=== PATIENT | male | born 1945 | race African-American/Black ===

== ENCOUNTER 2021-06-07 17:04 | Inpatient (IN) ==
[2021-06-08 01:17] LABS: Osmolality,Calculated 289.2 MOS/KG (273-304); Potassium 5.4 MMOL/L (3.5-5.1)
[2021-06-08 01:20] LABS: Basophils % 0.2 % (0.0-0.8); Hematocrit 46.7 VOL% (42.0-52.0); Hemoglobin 15.3 GM/DL (14.0-18.0); Immature Granulocytes Absolute 0.24 #; Lymphocytes # 0.6 10*3/uL (1.4-4.0); Lymphocytes % 4.7 % (21.2-54.2); Mean Corpuscular HGB Conc 32.8 GM/DL (32-36); Mean Corpuscular Volume 89.1 FL (87-102); Mean Platelet Volume 9.9 FL (9.6-12.0); Monocytes % 6.2 % (1.7-12.7); Neutrophils % 86.9 % (38.7-73.9); Platelet Count 208 T/CUMM (130-400); Red Blood Count 5.24 MC/CUMM (3.8-5.5); Red Cell Distribution Width 15.6 % (9.3-17.3)
[2021-06-08] MEDS ORDERED: SODIUM CHLORIDE 0.9% 1,000 ML IV STA (01:28)
[2021-06-08] MEDS ORDERED: ONDANSETRON 4 MG/2 ML VIAL IV PRN (01:37)
[2021-06-08] MEDS ORDERED: GLUCAGON 1 MG VIAL IM PRN (01:37)
[2021-06-08] MEDS ORDERED: DEXTROSE 50% 25 GM/50 ML SYRINGE IV PRN (01:37)
[2021-06-08] MEDS ORDERED: ACETAMINOPHEN 325 MG TABLET PO PRN (01:37)
[2021-06-08 03:16] LABS: Band Neutrophils 2 % (0-10); Lymphocytes 5 % (20-55); Platelet Estimate Normal; Segmented Neutrophils 90 % (50-85); Total Cells Counted 100
[2021-06-08 03:17] LABS: Microcytosis Slight; Polychromasia Slight
[2021-06-08 03:33] LABS: Basophils % 0.3 % (0.0-0.8); Eosinophils % 0.2 % (0.00-10.9); Hematocrit 44.5 VOL% (42.0-52.0); Hemoglobin 14.8 GM/DL (14.0-18.0); Immature Granulocytes % 1.3 %; Immature Granulocytes Absolute 0.15 #; Lymphocytes # 0.4 10*3/uL (1.4-4.0); Lymphocytes % 3.4 % (21.2-54.2); Mean Corpuscular HGB Conc 33.3 GM/DL (32-36); Mean Corpuscular Volume 88.6 FL (87-102); Mean Platelet Volume 10.4 FL (9.6-12.0); Monocytes % 3.5 % (1.7-12.7); Neutrophils % 91.3 % (38.7-73.9); Platelet Count 214 T/CUMM (130-400); Red Blood Count 5.02 MC/CUMM (3.8-5.5); Red Cell Distribution Width 15.6 % (9.3-17.3); White Blood Count 11.9 T/CUMM (4-12)
[2021-06-08 04:03] LABS: Band Neutrophils 3 % (0-10); Lymphocytes 1 % (20-55); Platelet Estimate Adequate; Segmented Neutrophils 92 % (50-85); Total Cells Counted 100
[2021-06-08 04:12] LABS: Calcium 8.8 MG/DL (8.5-10.1); Osmolality,Calculated 293.1 MOS/KG (273-304); Potassium 5.7 MMOL/L (3.5-5.1); Thyroid Stimulating Hormone 1.36 uIU/ml (0.358-3.74)
[2021-06-08] MEDS: cefTRIAXone 2,000 MG in SODIUM CHLORIDE 0.9% 100 ML IV SCH (04:27)
[2021-06-08 04:38] LABS: Ferritin 1362.1 ng/mL (26-388)
[2021-06-08] MEDS: SODIUM CHLORIDE 0.9% 1,000 ML IV SCH ×3 (04:45→21:54)
[2021-06-08] MEDS: HEPARIN 5,000 UNIT/1 ML VIAL SUBCUT SCH ×2 (09:39→21:54)
[2021-06-08] MEDS: amLODIPine 10 MG TABLET PO SCH (09:46)
[2021-06-08] MEDS: ZINC SULFATE 220 MG CAPSULE PO SCH (09:46)
[2021-06-08] MEDS: PANTOPRAZOLE 40 MG TABLET PO SCH (09:46)
[2021-06-08] MEDS: DEXAMETHASONE 4 MG TABLET PO SCH (09:46)
[2021-06-08] MEDS: FAMOTIDINE 20 MG TABLET PO SCH (09:46)
[2021-06-09] MEDS: SODIUM CHLORIDE 0.9% 1,000 ML IV SCH ×2 (05:08→05:09)
[2021-06-09 05:29] LABS: Basophils % 0.1 % (0.0-0.8); Lymphocytes # 0.5 10*3/uL (1.4-4.0); Lymphocytes % 2.8 % (21.2-54.2); Mean Corpuscular Volume 88.5 FL (87-102); Red Cell Distribution Width 15.7 % (9.3-17.3)
[2021-06-09 05:43] LABS: Hematocrit 36.9 VOL% (42.0-52.0); Immature Granulocytes % 0.7 %; Immature Granulocytes Absolute 0.11 #; Mean Corpuscular HGB Conc 33.6 GM/DL (32-36); Monocytes % 2.1 % (1.7-12.7); Neutrophils % 94.3 % (38.7-73.9); Platelet Count 201 T/CUMM (130-400); Red Blood Count 4.17 MC/CUMM (3.8-5.5)
[2021-06-09 05:47] LABS: Hemoglobin 12.4 GM/DL (14.0-18.0); White Blood Count 15.9 T/CUMM (4-12)
[2021-06-09 05:48] LABS: Calcium 8.2 MG/DL (8.5-10.1); Osmolality,Calculated 305.5 MOS/KG (273-304); Potassium 5.2 MMOL/L (3.5-5.1)
[2021-06-09 05:51] LABS: Band Neutrophils 2 % (0-10); Lymphocytes 1 % (20-55); Platelet Estimate Adequate; Segmented Neutrophils 95 % (50-85); Total Cells Counted 100
[2021-06-09] MEDS: cefTRIAXone 2,000 MG in SODIUM CHLORIDE 0.9% 100 ML IV SCH (06:22)
[2021-06-09] MEDS ORDERED: SODIUM BICARBONATE 650 MG TABLET PO SCH (09:00)
[2021-06-09] MEDS: HEPARIN 5,000 UNIT/1 ML VIAL SUBCUT SCH ×2 (09:56→22:01)
[2021-06-09] MEDS: FAMOTIDINE 20 MG TABLET PO SCH (09:56)
[2021-06-09] MEDS: DEXAMETHASONE 4 MG TABLET PO SCH (09:56)
[2021-06-09] MEDS: PANTOPRAZOLE 40 MG TABLET PO SCH (09:56)
[2021-06-09] MEDS: amLODIPine 10 MG TABLET PO SCH (09:56)
[2021-06-09] MEDS: ZINC SULFATE 220 MG CAPSULE PO SCH (09:56)
[2021-06-09] MEDS ORDERED: AZITHROMYCIN 250 MG TABLET PO ONE (12:18)
[2021-06-09] MEDS: SODIUM BICARB INJ 100 MEQ in DEXTROSE 5% 1,000 ML IV SCH ×2 (12:20→22:01)
[2021-06-09] MEDS: SODIUM ZIRCONIUM CYCLOSILICATE 10 GM PACK PO SCH (12:20)
[2021-06-09 17:54] LABS: Bilirubin,Urine Negative (Negative); Blood, Urine Moderate mg/dL (Negative); Glucose,Urine (UA) Negative (Negative); Ketones,Urine Negative (Negative); Mucus,Urine Occasional /LPF (Occasional); Nitrite,Urine Negative (Negative); Protein,Urine >=500 MG/DL; RBC,Urine 7 /HPF (0-4); Urine Appearance Slightly Hazy (Clear); Urine Color Yellow (Yellow); Urine Specific Gravity 1.011 (1.001-1.035); Urine Urobilinogen < 2.0 EU/DL (<2.0)
[2021-06-10] MEDS: SODIUM BICARB INJ 100 MEQ in DEXTROSE 5% 1,000 ML IV SCH ×2 (04:36→12:43)
[2021-06-10 05:42] LABS: Basophils % 0.1 % (0.0-0.8); Hematocrit 33.2 VOL% (42.0-52.0); Hemoglobin 11.5 GM/DL (14.0-18.0); Immature Granulocytes % 0.9 %; Immature Granulocytes Absolute 0.13 #; Lymphocytes # 0.3 10*3/uL (1.4-4.0); Lymphocytes % 1.9 % (21.2-54.2); Mean Corpuscular HGB Conc 34.6 GM/DL (32-36); Mean Corpuscular Volume 87.1 FL (87-102); Mean Platelet Volume 9.9 FL (9.6-12.0); Neutrophils % 96.1 % (38.7-73.9); Platelet Count 197 T/CUMM (130-400); Red Blood Count 3.81 MC/CUMM (3.8-5.5); Red Cell Distribution Width 15.5 % (9.3-17.3)
[2021-06-10 06:05] LABS: Calcium 7.5 MG/DL (8.5-10.1); Osmolality,Calculated 300.1 MOS/KG (273-304); Potassium 4.3 MMOL/L (3.5-5.1)
[2021-06-10] MEDS: cefTRIAXone 2,000 MG in SODIUM CHLORIDE 0.9% 100 ML IV SCH (06:09)
[2021-06-10 06:12] LABS: Band Neutrophils 5 % (0-10); Hypochromia Slight; Lymphocytes 2 % (20-55); Segmented Neutrophils 93 % (50-85); Total Cells Counted 100
[2021-06-10 06:13] LABS: Microcytosis 1+; Tear Drop Cells Slight
[2021-06-10 06:14] LABS: Platelet Estimate Adequate; Schistocytes Slight
[2021-06-10] MEDS: AZITHROMYCIN 250 MG TABLET PO SCH (09:46)
[2021-06-10] MEDS: ZINC SULFATE 220 MG CAPSULE PO SCH (09:46)
[2021-06-10] MEDS: HEPARIN 5,000 UNIT/1 ML VIAL SUBCUT SCH ×2 (09:46→20:08)
[2021-06-10] MEDS: SODIUM ZIRCONIUM CYCLOSILICATE 10 GM PACK PO SCH (09:46)
[2021-06-10] MEDS: DEXAMETHASONE 4 MG TABLET PO SCH (09:46)
[2021-06-10] MEDS: NICOTINE 21 MG/24 HR PATCH TRANSDERM SCH (09:46)
[2021-06-10] MEDS: PANTOPRAZOLE 40 MG TABLET PO SCH (09:46)
[2021-06-10] MEDS: FAMOTIDINE 20 MG TABLET PO SCH (09:46)
[2021-06-10] MEDS: amLODIPine 10 MG TABLET PO SCH (09:47)
[2021-06-11 05:26] LABS: Hematocrit 31.4 VOL% (42.0-52.0); Hemoglobin 11.1 GM/DL (14.0-18.0); Immature Granulocytes % 0.8 %; Immature Granulocytes Absolute 0.07 #; Lymphocytes # 0.2 10*3/uL (1.4-4.0); Lymphocytes % 2.3 % (21.2-54.2); Mean Corpuscular HGB Conc 35.4 GM/DL (32-36); Mean Corpuscular Volume 88.7 FL (87-102); Mean Platelet Volume 10.8 FL (9.6-12.0); Monocytes % 1.8 % (1.7-12.7); Neutrophils % 95.1 % (38.7-73.9); Platelet Count 223 T/CUMM (130-400); Red Blood Count 3.54 MC/CUMM (3.8-5.5); White Blood Count 9.1 T/CUMM (4-12)
[2021-06-11] MEDS: SODIUM BICARB INJ 100 MEQ in DEXTROSE 5% 1,000 ML IV SCH ×2 (05:38)
[2021-06-11] MEDS: cefTRIAXone 2,000 MG in SODIUM CHLORIDE 0.9% 100 ML IV SCH (05:39)
[2021-06-11 05:46] LABS: Alanine Aminotransferase 30 U/L (16-61); Albumin 1.4 G/DL (3.4-5.0); Alkaline Phosphatase 52 U/L (45-117); Aspartate Amino Transferase 67 U/L (0-37); Bilirubin,Total < 0.39 MG/DL (0.20-1.00); Blood Urea Nitrogen 128 MG/DL (7-18); Calcium 7.1 MG/DL (8.5-10.1); Carbon Dioxide 23 MMOL/L (21-32); Estimated Glom Filtration Rate 9 ML/MIN; Ferritin 1407.2 ng/mL (26-388); Glucose 189 MG/DL (74-106); Osmolality,Calculated 296.5 MOS/KG (273-304); Potassium 3.9 MMOL/L (3.5-5.1); Sodium 125 MMOL/L (136-145); Total Protein 5.9 G/DL (6.4-8.2)
[2021-06-11 05:53] LABS: Hypochromia Slight; Lymphocytes 2 % (20-55); Microcytosis 1+; Segmented Neutrophils 97 % (50-85); Total Cells Counted 100
[2021-06-11 05:54] LABS: Platelet Estimate Normal
[2021-06-11] MEDS: FAMOTIDINE 20 MG TABLET PO SCH (09:26)
[2021-06-11] MEDS: amLODIPine 10 MG TABLET PO SCH (09:26)
[2021-06-11] MEDS: HEPARIN 5,000 UNIT/1 ML VIAL SUBCUT SCH ×2 (09:26→21:14)
[2021-06-11] MEDS: NICOTINE 21 MG/24 HR PATCH TRANSDERM SCH (09:26)
[2021-06-11] MEDS: AZITHROMYCIN 250 MG TABLET PO SCH (09:26)
[2021-06-11] MEDS: PANTOPRAZOLE 40 MG TABLET PO SCH (09:26)
[2021-06-11] MEDS: DEXAMETHASONE 4 MG TABLET PO SCH (09:26)
[2021-06-11] MEDS: SODIUM ZIRCONIUM CYCLOSILICATE 10 GM PACK PO SCH (09:27)
[2021-06-11] MEDS: ZINC SULFATE 220 MG CAPSULE PO SCH (09:33)
[2021-06-11] MEDS: SODIUM CHLORIDE 0.9% 1,000 ML IV SCH (13:34)
[2021-06-12] MEDS: SODIUM CHLORIDE 0.9% 1,000 ML IV SCH (02:55)
[2021-06-12] MEDS: cefTRIAXone 2,000 MG in SODIUM CHLORIDE 0.9% 100 ML IV SCH (05:25)
[2021-06-12 05:44] LABS: Basophils % 0.2 % (0.0-0.8); Hematocrit 34.1 VOL% (42.0-52.0); Hemoglobin 12.1 GM/DL (14.0-18.0); Immature Granulocytes % 0.6 %; Immature Granulocytes Absolute 0.04 #; Lymphocytes # 0.3 10*3/uL (1.4-4.0); Lymphocytes % 4.7 % (21.2-54.2); Mean Corpuscular HGB Conc 35.5 GM/DL (32-36); Mean Corpuscular Volume 88.1 FL (87-102); Mean Platelet Volume 10.2 FL (9.6-12.0); Monocytes % 3.4 % (1.7-12.7); Neutrophils % 91.1 % (38.7-73.9); Platelet Count 254 T/CUMM (130-400); Red Blood Count 3.87 MC/CUMM (3.8-5.5); Red Cell Distribution Width 14.8 % (9.3-17.3); White Blood Count 6.5 T/CUMM (4-12)
[2021-06-12 06:11] LABS: Lymphocytes 5 % (20-55); Platelet Estimate Adequate; Segmented Neutrophils 94 % (50-85); Total Cells Counted 100
[2021-06-12 06:12] LABS: Hypochromia Slight; Microcytosis 1+
[2021-06-12 06:15] LABS: Ferritin 1390.9 ng/mL (26-388); Osmolality,Calculated 309.4 MOS/KG (273-304); Potassium 3.9 MMOL/L (3.5-5.1)
[2021-06-12 08:35] VITALS: BP 139/82
[2021-06-12] MEDS: DEXAMETHASONE 4 MG TABLET PO SCH (10:31)
[2021-06-12] MEDS: NICOTINE 21 MG/24 HR PATCH TRANSDERM SCH (10:32)
[2021-06-12] MEDS: SODIUM ZIRCONIUM CYCLOSILICATE 10 GM PACK PO SCH (10:32)
[2021-06-12] MEDS: HEPARIN 5,000 UNIT/1 ML VIAL SUBCUT SCH (10:32)
[2021-06-12] MEDS: ZINC SULFATE 220 MG CAPSULE PO SCH (10:33)
[2021-06-12] MEDS: AZITHROMYCIN 250 MG TABLET PO SCH (10:33)
[2021-06-12] MEDS: PANTOPRAZOLE 40 MG TABLET PO SCH (10:33)
[2021-06-12] MEDS: amLODIPine 10 MG TABLET PO SCH (10:33)
[2021-06-12] MEDS: FAMOTIDINE 20 MG TABLET PO SCH (10:33)
== END 2021-06-12 10:30 | disposition left against medical advice (07) | DRG 177 ==
LOC: N.ED 17:04 → N.EDINP 06-08 01:37 → SUATTDRO 06-08 01:37 → N.3E 06-08 02:35
PROVIDERS: ADMIT Internal Medicine; ATTEND Internal Medicine

== ENCOUNTER 2022-05-21 10:11 | Inpatient (IN) ==
[2022-05-21] MEDS ORDERED: hydrALAZINE 20 MG/1 ML VIAL IV STA (10:43)
[2022-05-21 10:53] LABS: Basophils % 0.2 % (0.0-0.8); Eosinophils % 0.5 % (0.00-10.9); Hematocrit 40.2 VOL% (42.0-52.0); Hemoglobin 12.9 GM/DL (14.0-18.0); Immature Granulocytes % 0.3 %; Immature Granulocytes Absolute 0.02 #; Lymphocytes # 0.9 10*3/uL (1.4-4.0); Lymphocytes % 15.4 % (21.2-54.2); Mean Corpuscular HGB Conc 32.1 GM/DL (32-36); Mean Corpuscular Volume 92.6 FL (87-102); Mean Platelet Volume 9.1 FL (9.6-12.0); Monocytes # 0.3 10*3/uL (0.11-0.8); Monocytes % 5.6 % (1.7-12.7); Platelet Count 171 T/CUMM (130-400); Red Blood Count 4.34 MC/CUMM (3.8-5.5); Red Cell Distribution Width 14.9 % (9.3-17.3); White Blood Count 6.1 T/CUMM (4-12)
[2022-05-21 11:15] LABS: Alanine Aminotransferase 24 U/L (16-61); Albumin 3.6 G/DL (3.4-5.0); Alkaline Phosphatase 79 U/L (45-117); Aspartate Amino Transferase 32 U/L (0-37); Bilirubin,Total < 0.39 MG/DL (0.20-1.00); Blood Urea Nitrogen 45 MG/DL (7-18); Calcium 9.3 MG/DL (8.5-10.1); Carbon Dioxide 19 MMOL/L (21-32); Chloride 109 MMOL/L (98-107); Glucose 115 MG/DL (74-106); Osmolality,Calculated 287.7 MOS/KG (273-304); Potassium 4.7 MMOL/L (3.5-5.1); Sodium 138 MMOL/L (136-145); Total Protein 8.2 G/DL (6.4-8.2)
[2022-05-21 11:44] LABS: Barbiturates Screen,Urine Negative (Negative); Benzodiazepines Screen,Urine Negative (Negative); Cannabinoid Screen,Urine Negative (Negative); Mucus,Urine Occasional /LPF (Occasional); Opiate Screen,Urine Negative (Negative); Phencyclidine Screen,Urine Negative (Negative); Squamous Epithelial Cell,Urine Occasional /HPF (0-10)
[2022-05-21 11:45] LABS: Bilirubin,Urine Negative (Negative); Blood, Urine Small mg/dL (Negative); Glucose,Urine (UA) Negative (Negative); Ketones,Urine Negative (Negative); Nitrite,Urine Negative (Negative); Protein,Urine >=300 mg/dL (Negative); Urine Appearance Clear (Clear); Urine Color Yellow (Yellow); Urine Specific Gravity > 1.030 (1.001-1.035); Urine Urobilinogen 0.2 eU/dL (<2.0); Urine pH 5.5 (4.5-8.0)
[2022-05-21] MEDS ORDERED: LABETALOL 100 MG/20 ML VIAL IV STA (13:19)
[2022-05-21] MEDS ORDERED: ONDANSETRON 4 MG/2 ML VIAL IV PRN (13:42)
[2022-05-21] MEDS ORDERED: ALBUTEROL/IPRATROPIUM 3 ML NEB RESP TX PRN (13:42)
[2022-05-21] MEDS ORDERED: guaiFENesin/DM ER 600-30 MG TABLET PO PRN (13:42)
[2022-05-21] MEDS ORDERED: NICOTINE 21 MG/24 HR PATCH TRANSDERM PRN (13:42)
[2022-05-21] MEDS ORDERED: ACETAMINOPHEN 325 MG TABLET PO PRN (13:42)
[2022-05-21] MEDS ORDERED: cefTRIAXone 1,000 MG in SODIUM CHLORIDE 0.9% 100 ML IV SCH (14:00)
[2022-05-21] MEDS: SODIUM CHLORIDE 0.9% 1,000 ML IV SCH ×2 (14:19→22:42)
[2022-05-21] MEDS ORDERED: ENOXAPARIN 30 MG/0.3 ML SYRINGE SUBCUT SCH (21:00)
[2022-05-22 06:38] LABS: Basophils % 0.2 % (0.0-0.8); Eosinophils # 0.1 10*3/uL (0.0-0.87); Eosinophils % 1.4 % (0.00-10.9); Hemoglobin 11.2 GM/DL (14.0-18.0); Immature Granulocytes % 0.4 %; Immature Granulocytes Absolute 0.02 #; Lymphocytes # 0.8 10*3/uL (1.4-4.0); Mean Corpuscular HGB Conc 31.1 GM/DL (32-36); Mean Platelet Volume 10.1 FL (9.6-12.0); Monocytes # 0.4 10*3/uL (0.11-0.8); Monocytes % 7.4 % (1.7-12.7); Neutrophils % 76.6 % (38.7-73.9); Platelet Count 169 T/CUMM (130-400); Red Blood Count 3.79 MC/CUMM (3.8-5.5); Red Cell Distribution Width 15.4 % (9.3-17.3); White Blood Count 5.6 T/CUMM (4-12)
[2022-05-22 06:54] LABS: Calcium 8.8 MG/DL (8.5-10.1); Osmolality,Calculated 292.3 MOS/KG (273-304); Potassium 4.9 MMOL/L (3.5-5.1)
[2022-05-22] MEDS: SODIUM CHLORIDE 0.9% 1,000 ML IV SCH (06:58)
[2022-05-22] MEDS ORDERED: amLODIPine 5 MG TABLET PO SCH (09:00)
[2022-05-22 15:54] VITALS: BP 112/70
== END 2022-05-22 11:10 | disposition left against medical advice (07) | DRG 305 ==
LOC: N.ED 10:11 → N.3E 13:42 → SUATTDRO 13:42 → N.3E 15:05
PROVIDERS: ADMIT Internal Medicine; ATTEND Internal Medicine

== ENCOUNTER 2022-05-27 18:07 | Inpatient (IN) ==
[2022-05-27 19:12] LABS: Basophils % 0.2 % (0.0-0.8); Eosinophils # 0.1 10*3/uL (0.0-0.87); Eosinophils % 1.2 % (0.00-10.9); Hematocrit 36.3 VOL% (42.0-52.0); Hemoglobin 11.7 GM/DL (14.0-18.0); Immature Granulocytes % 0.2 %; Immature Granulocytes Absolute 0.01 #; Lymphocytes # 0.9 10*3/uL (1.4-4.0); Lymphocytes % 17.5 % (21.2-54.2); Mean Corpuscular HGB Conc 32.2 GM/DL (32-36); Mean Corpuscular Volume 92.1 FL (87-102); Mean Platelet Volume 9.5 FL (9.6-12.0); Monocytes # 0.4 10*3/uL (0.11-0.8); Monocytes % 7.4 % (1.7-12.7); Neutrophils % 73.5 % (38.7-73.9); Platelet Count 191 T/CUMM (130-400); Red Blood Count 3.94 MC/CUMM (3.8-5.5); White Blood Count 4.9 T/CUMM (4-12)
[2022-05-27 19:31] LABS: Alanine Aminotransferase 28 U/L (16-61); Albumin 3.1 G/DL (3.4-5.0); Alkaline Phosphatase 71 U/L (45-117); Aspartate Amino Transferase 45 U/L (0-37); Bilirubin,Total < 0.39 MG/DL (0.20-1.00); Blood Urea Nitrogen 49 MG/DL (7-18); Calcium 8.7 MG/DL (8.5-10.1); Carbon Dioxide 21 MMOL/L (21-32); Chloride 108 MMOL/L (98-107); Glucose 133 MG/DL (74-106); Osmolality,Calculated 291.5 MOS/KG (273-304); Potassium 4.3 MMOL/L (3.5-5.1); Sodium 139 MMOL/L (136-145); Total Protein 6.7 G/DL (6.4-8.2)
[2022-05-27] MEDS ORDERED: ASPIRIN CHEW 81 MG TABLET PO STA (19:33)
[2022-05-27 19:59] LABS: Amorphous Crystals,Urine Occasional /HPF (Few); Mucus,Urine Occasional /LPF (Occasional)
[2022-05-27 20:04] LABS: Urine Appearance Slightly Cloudy (Clear); Urine Color Yellow (Yellow)
[2022-05-27 20:05] LABS: Bilirubin,Urine Negative (Negative); Blood, Urine Moderate mg/dL (Negative); Glucose,Urine (UA) Negative (Negative); Ketones,Urine Negative (Negative); Nitrite,Urine Negative (Negative); Protein,Urine >=300 mg/dL (Negative); Urine Specific Gravity >= 1.030 (1.001-1.035); Urine Urobilinogen 0.2 eU/dL (<2.0); Urine pH 5.5 (4.5-8.0)
[2022-05-27 20:17] LABS: INR 0.9; PT Patient Result 10.4 SECS (10.1-12.1); Partial Thromboplastin Time 31.6 SECS (23.7-32.9)
[2022-05-27 20:33] LABS: Barbiturates Screen,Urine Negative (Negative); Benzodiazepines Screen,Urine Negative (Negative); Cannabinoid Screen,Urine Negative (Negative); Opiate Screen,Urine Negative (Negative); Phencyclidine Screen,Urine Negative (Negative)
[2022-05-27 20:42] LABS: Sedimentation Rate-Westergren 89 MM/HR (0-20)
[2022-05-27] MEDS ORDERED: hydrALAZINE 20 MG/1 ML VIAL IV PRN (21:35)
[2022-05-27] MEDS ORDERED: MORPHINE 2 MG/1 ML SYRINGE IV PRN (21:35)
[2022-05-27] MEDS ORDERED: ACETAMINOPHEN 325 MG TABLET PO PRN (21:35)
[2022-05-27] MEDS ORDERED: ONDANSETRON 4 MG/2 ML VIAL IV PRN (21:35)
[2022-05-27] MEDS ORDERED: NICOTINE 21 MG/24 HR PATCH TRANSDERM PRN (22:36)
[2022-05-27] MEDS ORDERED: ENOXAPARIN 30 MG/0.3 ML SYRINGE ONE (23:18)
[2022-05-28] MEDS ORDERED: LACTATED RINGERS 1,000 ML IV SCH (01:30)
[2022-05-28 05:35] LABS: Basophils % 0.2 % (0.0-0.8); Eosinophils # 0.1 10*3/uL (0.0-0.87); Eosinophils % 1.6 % (0.00-10.9); Hematocrit 32.8 VOL% (42.0-52.0); Hemoglobin 10.6 GM/DL (14.0-18.0); Immature Granulocytes % 0.4 %; Immature Granulocytes Absolute 0.02 #; Lymphocytes # 0.9 10*3/uL (1.4-4.0); Lymphocytes % 18.9 % (21.2-54.2); Mean Corpuscular HGB Conc 32.3 GM/DL (32-36); Mean Corpuscular Volume 91.9 FL (87-102); Mean Platelet Volume 9.9 FL (9.6-12.0); Monocytes # 0.3 10*3/uL (0.11-0.8); Neutrophils % 71.9 % (38.7-73.9); Platelet Count 189 T/CUMM (130-400); Red Blood Count 3.57 MC/CUMM (3.8-5.5); Red Cell Distribution Width 14.9 % (9.3-17.3); White Blood Count 4.9 T/CUMM (4-12)
[2022-05-28 05:53] LABS: Calcium 8.7 MG/DL (8.5-10.1); Osmolality,Calculated 288.7 MOS/KG (273-304); Potassium 4.5 MMOL/L (3.5-5.1)
[2022-05-28] MEDS ORDERED: amLODIPine 2.5 MG TABLET PO ONE (07:46)
[2022-05-28] MEDS: PANTOPRAZOLE 40 MG TABLET PO SCH (11:06)
[2022-05-28] MEDS: cloNIDine 0.1 MG TABLET PO SCH (11:06)
[2022-05-28] MEDS: ENOXAPARIN 30 MG/0.3 ML SYRINGE SUBCUT SCH (22:15)
[2022-05-29 05:28] LABS: Basophils % 0.2 % (0.0-0.8); Eosinophils # 0.1 10*3/uL (0.0-0.87); Eosinophils % 1.1 % (0.00-10.9); Hematocrit 34.5 VOL% (42.0-52.0); Hemoglobin 11.2 GM/DL (14.0-18.0); Immature Granulocytes % 0.6 %; Immature Granulocytes Absolute 0.03 #; Lymphocytes # 1.2 10*3/uL (1.4-4.0); Lymphocytes % 21.2 % (21.2-54.2); Mean Corpuscular HGB Conc 32.5 GM/DL (32-36); Mean Platelet Volume 9.8 FL (9.6-12.0); Monocytes # 0.4 10*3/uL (0.11-0.8); Monocytes % 6.5 % (1.7-12.7); Neutrophils % 70.4 % (38.7-73.9); Platelet Count 194 T/CUMM (130-400); Red Blood Count 3.71 MC/CUMM (3.8-5.5); White Blood Count 5.4 T/CUMM (4-12)
[2022-05-29 05:49] LABS: Alanine Aminotransferase 22 U/L (16-61); Albumin 2.8 G/DL (3.4-5.0); Alkaline Phosphatase 63 U/L (45-117); Aspartate Amino Transferase 31 U/L (0-37); Bilirubin,Total < 0.39 MG/DL (0.20-1.00); Blood Urea Nitrogen 45 MG/DL (7-18); Calcium 8.9 MG/DL (8.5-10.1); Carbon Dioxide 22 MMOL/L (21-32); Chloride 112 MMOL/L (98-107); Glucose 107 MG/DL (74-106); Osmolality,Calculated 288.5 MOS/KG (273-304); Potassium 4.4 MMOL/L (3.5-5.1); Sodium 139 MMOL/L (136-145); Total Protein 6.6 G/DL (6.4-8.2)
[2022-05-29] MEDS: PANTOPRAZOLE 40 MG TABLET PO SCH (08:04)
[2022-05-29] MEDS: cloNIDine 0.1 MG TABLET PO SCH (08:04)
[2022-05-29] MEDS ORDERED: amLODIPine 2.5 MG TABLET PO ONE (08:31)
[2022-05-29] MEDS ORDERED: amLODIPine 2.5 MG TABLET PO SCH (09:00)
[2022-05-29] MEDS: ENOXAPARIN 30 MG/0.3 ML SYRINGE SUBCUT SCH (20:56)
[2022-05-30 04:56] LABS: Calcium 9.4 MG/DL (8.5-10.1); Osmolality,Calculated 288.4 MOS/KG (273-304); Potassium 4.4 MMOL/L (3.5-5.1)
[2022-05-30] MEDS: cloNIDine 0.1 MG TABLET PO SCH (08:54)
[2022-05-30] MEDS: PANTOPRAZOLE 40 MG TABLET PO SCH (08:54)
[2022-05-30] MEDS: amLODIPine 5 MG TABLET PO SCH (08:54)
[2022-05-31] MEDS ORDERED: PHENYLEPH/MINERAL OIL/PETROLAT 57 GM TUBE TOP PRN (08:35)
[2022-05-31] MEDS: amLODIPine 5 MG TABLET PO SCH (08:40)
[2022-05-31] MEDS: PANTOPRAZOLE 40 MG TABLET PO SCH (08:41)
[2022-05-31 11:36] VITALS: BP 148/79
== END 2022-05-31 16:04 | disposition home or self-care (01) | DRG 305 ==
LOC: EDUNIT# → EDBD → N.ED 18:07 → N.EDINP 18:07 → SUATTDRO 21:35 → N.TELES 05-28 01:52
PROVIDERS: ADMIT Family Medicine; ATTEND Internal Medicine